=== PATIENT | male | born 1935 | race Caucasian/White ===

== ENCOUNTER 2019-04-11 16:57 | Inpatient (IN) | payer MEDICARE, OTHER ==
[~2019-04-11] VITALS: Ht 175.3 cm; Wt 78.2 kg
[~2019-04-11 16:57] MED LIST: LIDOcaine 2% (20 mg/ml) 5ml cardiac syringe ONE; MAGNESIUM SULFATE 4 MEQ/ML (5gm/10ml) injection ONE; albumin (human) 25% 100 ML IV solution IV ONE; aminocaproic acid 250 MG/1 ML inj. ONE; calcium chloride 100 MG/1 ML inj IV ONE; heparin 1,000 units/ml 10ml inj ONE; heparin 10,000 units/1 ML INJ ONE; methylPREDNISolone sod. succ. 500mg inj ONE; papaverine 30 mg/ml 2ml inj. ONE; phenylephrine 10mg/ml inj. ONE; potassium Cl 2 mEq/ml inj IV ONE; sevoflurane 250ml liquid IH ONE; sodium bicarbonate (8.4%) 1 mEq/ml syringe ONE
[2019-04-11] MEDS ORDERED: LOSA100T57 PO (17:07)
[2019-04-11] MEDS ORDERED: AMLO10TA PO (17:07)
--- NOTE | 2019-04-11 18:49 | NUR ---
pat troponin level came 2.59,notified eva hutchison as per eva thornton telephone betting clerk to page dr brown cardioloigist,notified and paged dr brown.
[2019-04-11 18:55] LABS: BASOPHILS # (AUTO) 0.1 X10'3 (0-0.2); BASOPHILS % (AUTO) 0.9 % (0-1); EOSINOPHILS # (AUTO) 0.2 X10'3 (0-0.9); EOSINOPHILS % (AUTO) 2.3 % (0-6); HEMATOCRIT 47.6 % (42.0-52.0); HEMOGLOBIN 16.2 g/dl (14.0-17.9); LYMPHOCYTES # (AUTO) 2.6 X10'3 (1.1-4.8); LYMPHOCYTES % (AUTO) 28.8 % (21-51); MEAN CORPUSCULAR HEMOGLOBIN 30.5 PG (27.0-31.0); MEAN CORPUSCULAR HGB CONC 33.9 g/dL (33.0-36.5); MEAN PLATELET VOLUME 9.8 FL (7.4-10.4); MONOCYTES # (AUTO) 0.5 X10'3 (0-0.9); MONOCYTES % (AUTO) 5.8 % (2-12); NEUTROPHILS # (AUTO) 5.7 X10'3 (1.8-7.7); NEUTROPHILS % (AUTO) 62.2 % (42-75); PLATELET COUNT 196 X10'3 (140-440); RED BLOOD COUNT 5.29 X10'6 (4.70-6.10); RED CELL DISTRIBUTION WIDTH 13.1 % (11.5-14.5); WHITE BLOOD COUNT 9.2 X10'3 (4.5-11.0)
[2019-04-11 19:07] LABS: ALANINE AMINOTRANSFERASE 32 U/L (12-78); ALBUMIN 3.9 G/DL (3.4-5.0); ALBUMIN/GLOBULIN RATIO 1.1 (1.1-1.5); ANION GAP 8 (8-16); ASPARTATE AMINO TRANSFERASE 24 U/L (10-37); BILIRUBIN,TOTAL 1.1 MG/DL (0.1-1.0); BLOOD UREA NITROGEN 10 MG/DL (7-18); BUN/CREATININE RATIO 12.3 (5.4-32.0); CALCIUM 9.5 MG/DL (8.5-10.1); CHLORIDE 106 MMOL/L (99-107); CREATININE 0.81 MG/DL (0.60-1.10); GLUCOSE 96 MG/DL (70-104); POTASSIUM 3.9 MMOL/L (3.5-5.1); SODIUM 141 MMOL/L (135-145); TOTAL CARBON DIOXIDE 27.5 MMOL/L (24-32); TOTAL PROTEIN 7.3 G/DL (6.4-8.2); eGFR > 90 ML/MIN
[2019-04-11 19:08] LABS: ALKALINE PHOSPHATASE 75 IU/L (46-116)
[2019-04-11] MEDS ORDERED: mag hydrox/Alum hydrox/simeth 30ml oral suspension PO PRN (19:55)
[2019-04-11] MEDS ORDERED: normal saline 1000ml 1,000 ML IV SCH (19:55)
[2019-04-11] MEDS ORDERED: magnesium hydroxide 30ml (MOM) UD suspension PO PRN (19:55)
[2019-04-11] MEDS ORDERED: ondansetron/PF 4mg/2ml inj IV PRN (19:55)
[2019-04-11] MEDS ORDERED: acetaminophen 325mg tablet PO PRN (19:55)
[2019-04-11 20:21] LABS: HEMOGLOBIN A1C 5.4 % (4.5-6.2)
--- NOTE | 2019-04-11 20:24 | NUR ---
SHAW MEL TO CALL BACK TO RECEIVE REPORT.
[2019-04-11] MEDS: metoprolol tartrate 12.5mg (1/2 tablet) PO SCH (20:34)
[2019-04-11] MEDS: enoxaparin 40mg/0.4ml syringe SUBCUT SCH (20:34)
--- NOTE | 2019-04-11 20:50 | NUR ---
Patient in room MED 313. I have received report from [facility] and had the opportunity to ask questions and assume patient care.
[2019-04-11] MEDS ORDERED: non-formulary drug (Amlodipine Besylate 1 TABLET) PO SCH (21:00)
[2019-04-11] MEDS ORDERED: zolpidem 5mg tablet PO ONE (21:00)
[2019-04-11] MEDS: amLODIPine 5mg tablet PO SCH (21:21)
[2019-04-11 22:00] VITALS: BP 164/78
[2019-04-12] VITALS (13 sets, daily range): BP systolic 95–156; BP diastolic 51–71
[2019-04-12 04:11] LABS: BASOPHILS % (AUTO) 0.5 % (0-1); EOSINOPHILS # (AUTO) 0.2 X10'3 (0-0.9); EOSINOPHILS % (AUTO) 2.7 % (0-6); HEMATOCRIT 42.7 % (42.0-52.0); HEMOGLOBIN 14.4 g/dl (14.0-17.9); LYMPHOCYTES # (AUTO) 2.4 X10'3 (1.1-4.8); LYMPHOCYTES % (AUTO) 29.7 % (21-51); MEAN CORPUSCULAR HEMOGLOBIN 30.5 PG (27.0-31.0); MEAN CORPUSCULAR HGB CONC 33.7 g/dL (33.0-36.5); MEAN CORPUSCULAR VOLUME 90.5 FL (78-98); MEAN PLATELET VOLUME 9.8 FL (7.4-10.4); MONOCYTES # (AUTO) 0.5 X10'3 (0-0.9); MONOCYTES % (AUTO) 6.7 % (2-12); NEUTROPHILS # (AUTO) 4.8 X10'3 (1.8-7.7); NEUTROPHILS % (AUTO) 60.4 % (42-75); PLATELET COUNT 182 X10'3 (140-440); RED BLOOD COUNT 4.72 X10'6 (4.70-6.10); RED CELL DISTRIBUTION WIDTH 13.3 % (11.5-14.5)
[2019-04-12 04:16] LABS: ALANINE AMINOTRANSFERASE 27 U/L (12-78); ALBUMIN 3.3 G/DL (3.4-5.0); ALBUMIN/GLOBULIN RATIO 1.1 (1.1-1.5); ALKALINE PHOSPHATASE 64 IU/L (46-116); ANION GAP 8 (8-16); ASPARTATE AMINO TRANSFERASE 21 U/L (10-37); BLOOD UREA NITROGEN 11 MG/DL (7-18); CALCIUM 9.2 MG/DL (8.5-10.1); CHLORIDE 107 MMOL/L (99-107); CHOL/HDL RATIO 3.2 (0.00-4.99); CHOLESTEROL 125 MG/DL (0-200); CREATININE 0.92 MG/DL (0.60-1.10); GLUCOSE 94 MG/DL (70-104); HDL CHOLESTEROL 39 MG/DL (35-60); LDL CHOLESTEROL 72 MG/DL (50-100); POTASSIUM 3.8 MMOL/L (3.5-5.1); SODIUM 142 MMOL/L (135-145); TOTAL CARBON DIOXIDE 27.2 MMOL/L (24-32); TOTAL PROTEIN 6.2 G/DL (6.4-8.2); TRIGLYCERIDES 171 MG/DL (20-135); eGFR 79 ML/MIN
--- NOTE | 2019-04-12 06:00 | NUR ---
Patient in room MED 313. I have received report from Chetan SQUIRES and had the opportunity to ask questions and assume patient care.
--- NOTE | 2019-04-12 07:00 | NUR ---
called laborer ammunition assembly and was instructed to only hold pt's lovenox and to give cozaar and lopressor.
[2019-04-12] MEDS: enoxaparin 40mg/0.4ml syringe SUBCUT SCH (07:03)
[2019-04-12] MEDS: metoprolol tartrate 12.5mg (1/2 tablet) PO SCH ×2 (07:28→21:05)
[2019-04-12] MEDS ORDERED: midazolam 2 mg/2 ml injection ONE (07:32)
[2019-04-12] MEDS ORDERED: iohexol 350MG/ML 100ml bottle IV ONE (07:33)
[2019-04-12] MEDS ORDERED: LIDOcaine 1% (10mg/ml)w/preservative injection 20ml MDV ONE (07:33)
[2019-04-12] MEDS ORDERED: iohexol 350 MG/ML 50ML vial IV ONE (07:33)
[2019-04-12] MEDS ORDERED: fentaNYL/PF 50MCG/1 ML 2ML syringe ONE (07:33)
[2019-04-12] MEDS ORDERED: heparin 1,000 UNITS/NS 500ml 500 ML ONE ×2 (07:33)
--- NOTE | 2019-04-12 07:45 | NUR ---
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
[2019-04-12] MEDS ORDERED: non-formulary drug (Losartan Potassium 1 TAB) PO SCH (08:00)
[2019-04-12] MEDS ORDERED: losartan 50mg tablet PO SCH (08:00)
[2019-04-12] MEDS ORDERED: atorvastatin 20mg tablet PO SCH (08:00)
[2019-04-12] MEDS: aspirin 325mg tablet PO SCH (08:30)
[2019-04-12] MEDS: normal saline 1000ml 1,000 ML IV SCH ×2 (08:30→18:30)
--- NOTE | 2019-04-12 08:45 | NUR ---
Patient in room MED 313; back from labor gang supervisor. I have received report from Janell SQUIRES and had the opportunity to ask questions and assume patient care.
[2019-04-12] MEDS ORDERED: heparin 10,000 units/1 ML INJ IV PRN (09:00)
[2019-04-12 09:24] LABS: BASOPHILS % (AUTO) 0.6 % (0-1); EOSINOPHILS # (AUTO) 0.1 X10'3 (0-0.9); EOSINOPHILS % (AUTO) 1.8 % (0-6); HEMATOCRIT 42.2 % (42.0-52.0); HEMOGLOBIN 14.1 g/dl (14.0-17.9); LYMPHOCYTES # (AUTO) 1.6 X10'3 (1.1-4.8); LYMPHOCYTES % (AUTO) 24.3 % (21-51); MEAN CORPUSCULAR HEMOGLOBIN 30.4 PG (27.0-31.0); MEAN CORPUSCULAR HGB CONC 33.5 g/dL (33.0-36.5); MEAN CORPUSCULAR VOLUME 90.8 FL (78-98); MEAN PLATELET VOLUME 9.4 FL (7.4-10.4); MONOCYTES # (AUTO) 0.4 X10'3 (0-0.9); NEUTROPHILS # (AUTO) 4.3 X10'3 (1.8-7.7); NEUTROPHILS % (AUTO) 67.3 % (42-75); PLATELET COUNT 180 X10'3 (140-440); RED BLOOD COUNT 4.64 X10'6 (4.70-6.10); RED CELL DISTRIBUTION WIDTH 13.1 % (11.5-14.5); WHITE BLOOD COUNT 6.5 X10'3 (4.5-11.0)
[2019-04-12 09:42] LABS: INR 1.1 INR; PARTIAL THROMBOPLASTIN TIME 32 SECONDS (22-32)
[2019-04-12] MEDS ORDERED: nitroGLYCERIN 0.4mg SUBLingual tab SL PRN (10:10)
[2019-04-12] MEDS ORDERED: proCHLORperazine 10 MG/2 ml inj IV PRN (10:10)
[2019-04-12] MEDS ORDERED: OXAZEpam 15mg capsule PO PRN (10:10)
[2019-04-12] MEDS ORDERED: HYDROcodone/acetaminophen 10/325mg tab PO PRN (10:10)
[2019-04-12] MEDS ORDERED: HYDROcodone/acetaminophen 5mg/325mg tablet PO PRN (10:10)
--- NOTE | 2019-04-12 10:11 | NUR ---
delay on starting heparin gtt looking for pump and vascular at bedside vein mapping being done.
[2019-04-12] MEDS: heparin 25,000 UNIT/250ml bag 250 ML IV SCH ×2 (11:01→17:53)
[2019-04-12] MEDS ORDERED: dextrose 50%-water 50ml dispensing syringe IV PRN (13:30)
[2019-04-12] MEDS ORDERED: MESSAGE TO NURSING PO ONE ×3 (13:30→20:00)
[2019-04-12] MEDS ORDERED: insulin glargine (Lantus) pen - multi-dose SQ PRN (13:30)
[2019-04-12 14:14] LABS: HEMOGLOBIN 14.8 g/dl (14.0-17.9); MEAN CORPUSCULAR HEMOGLOBIN 30.3 PG (27.0-31.0); MEAN CORPUSCULAR HGB CONC 33.6 g/dL (33.0-36.5); MEAN CORPUSCULAR VOLUME 90.3 FL (78-98); MEAN PLATELET VOLUME 9.7 FL (7.4-10.4); PLATELET COUNT 191 X10'3 (140-440); RED BLOOD COUNT 4.88 X10'6 (4.70-6.10); RED CELL DISTRIBUTION WIDTH 13.3 % (11.5-14.5); WHITE BLOOD COUNT 9.8 X10'3 (4.5-11.0)
[2019-04-12 14:24] LABS: ANION GAP 7 (8-16); BLOOD UREA NITROGEN 10 MG/DL (7-18); CHLORIDE 107 MMOL/L (99-107); CREATININE 0.83 MG/DL (0.60-1.10); GLUCOSE 91 MG/DL (70-104); POTASSIUM 3.7 MMOL/L (3.5-5.1); SODIUM 140 MMOL/L (135-145); TOTAL CARBON DIOXIDE 26.4 MMOL/L (24-32)
[2019-04-12 14:25] LABS: ALBUMIN 3.4 G/DL (3.4-5.0); CALCIUM 8.8 MG/DL (8.5-10.1); eGFR 88 ML/MIN
[2019-04-12 15:45] LABS: ABG BASE EXCESS -1.8 mmol/L (-2.0-3.0); ABG HCO3 21.8 mmol/L (22.0-26.0); ABG OXYGEN SATURATION 96.7 % (95-98); ABG PCO2 (T) 34.2 mmHg (35.0-48.0); ABG PH (T) 7.422 (7.350-7.450); ABG PO2 (T) 83.2 mmHg (83-108); ALLEN'S TEST Positive; FCOHb 0.5 % (0.5-1.5); FMetHb 0.2 % (0.3-1.12)
[2019-04-12 17:21] LABS: INR 1.1 INR
--- NOTE | 2019-04-12 18:00 | NUR ---
Patient in room MED 313. I have received report from Crys SQUIRES and had the opportunity to ask questions and assume patient care.
[2019-04-12] MEDS ORDERED: metoprolol tartrate 12.5mg (1/2 tablet) PO SCH (20:00)
[2019-04-12] MEDS: amLODIPine 5mg tablet PO SCH (21:04)
[2019-04-12] MEDS: mupirocin 2% nasal ointment 1gm UD NS SCH (21:05)
[2019-04-13] VITALS (18 sets, daily range): BP systolic 108–153; BP diastolic 50–73
[2019-04-13 01:10] LABS: INR 1.1 INR
[2019-04-13] MEDS ORDERED: MESSAGE TO NURSING PO ONE ×2 (04:00→07:00)
--- NOTE | 2019-04-13 05:42 | NUR ---
Page to Vascular. [id number]. Is this pt. still needing vein mapping of his arms for his CABG @1000 this morning. Per day shift it was suppose to be done last night but nobody ever showed back up after they completed the legs. Thank you.
[2019-04-13 05:49] LABS: BASOPHILS # (AUTO) 0.1 X10'3 (0-0.2); BASOPHILS % (AUTO) 0.7 % (0-1); EOSINOPHILS # (AUTO) 0.2 X10'3 (0-0.9); EOSINOPHILS % (AUTO) 2.5 % (0-6); HEMATOCRIT 39.9 % (42.0-52.0); HEMOGLOBIN 13.3 g/dl (14.0-17.9); LYMPHOCYTES # (AUTO) 2.8 X10'3 (1.1-4.8); LYMPHOCYTES % (AUTO) 33.6 % (21-51); MEAN CORPUSCULAR HEMOGLOBIN 30.5 PG (27.0-31.0); MEAN CORPUSCULAR HGB CONC 33.5 g/dL (33.0-36.5); MEAN CORPUSCULAR VOLUME 91.3 FL (78-98); MEAN PLATELET VOLUME 9.9 FL (7.4-10.4); MONOCYTES # (AUTO) 0.7 X10'3 (0-0.9); NEUTROPHILS # (AUTO) 4.6 X10'3 (1.8-7.7); NEUTROPHILS % (AUTO) 55.2 % (42-75); PLATELET COUNT 175 X10'3 (140-440); RED BLOOD COUNT 4.37 X10'6 (4.70-6.10); RED CELL DISTRIBUTION WIDTH 13.2 % (11.5-14.5); WHITE BLOOD COUNT 8.4 X10'3 (4.5-11.0)
--- NOTE | 2019-04-13 06:19 | NUR ---
Problems reprioritized. Patient report given, questions answered & plan of care reviewed with Crys SQUIRES.
[2019-04-13 06:27] LABS: ALANINE AMINOTRANSFERASE 23 U/L (12-78); ALBUMIN/GLOBULIN RATIO 1.1 (1.1-1.5); ALKALINE PHOSPHATASE 57 IU/L (46-116); ANION GAP 8 (8-16); ASPARTATE AMINO TRANSFERASE 15 U/L (10-37); BILIRUBIN,TOTAL 1.1 MG/DL (0.1-1.0); BLOOD UREA NITROGEN 13 MG/DL (7-18); BUN/CREATININE RATIO 12.6 (5.4-32.0); CALCIUM 8.3 MG/DL (8.5-10.1); CHLORIDE 110 MMOL/L (99-107); CREATININE 1.03 MG/DL (0.60-1.10); GLUCOSE 98 MG/DL (70-104); POTASSIUM 4.1 MMOL/L (3.5-5.1); SODIUM 143 MMOL/L (135-145); TOTAL CARBON DIOXIDE 24.7 MMOL/L (24-32); TOTAL PROTEIN 5.8 G/DL (6.4-8.2); eGFR 69 ML/MIN
[2019-04-13] MEDS ORDERED: ROPIVAcaine 0.5% (5mg/ml) 30ml vial ONE (07:19)
[2019-04-13] MEDS ORDERED: ringers solution, lacted 1,000 ML IV ONE (07:26)
[2019-04-13] MEDS: aspirin 325mg tablet PO SCH (07:39)
[2019-04-13] MEDS: mupirocin 2% nasal ointment 1gm UD NS SCH ×2 (07:39→21:25)
[2019-04-13] MEDS: metoprolol tartrate 12.5mg (1/2 tablet) PO SCH (07:41)
[2019-04-13] MEDS ORDERED: ceFAZolin 2gm in dextrose, iso 100 ML IV ONE (08:00)
[2019-04-13] MEDS ORDERED: vancomycin/NS 1 GM ADD-VANTAGE 250 ML IV ONE (08:00)
[2019-04-13] MEDS ORDERED: insulin regular, human 100 UNIT in normal saline 100ml IV soln 100 ML IV SCH ×2 (08:00)
[2019-04-13] MEDS ORDERED: gabapentin 400mg capsule PO ONE (08:00)
[2019-04-13] MEDS ORDERED: midazolam 2 mg/2 ml injection ONE ×3 (08:08→08:09)
[2019-04-13] MEDS ORDERED: SUFENTANIL CITRATE 50 MCG/ML 2ml ampule IV ONE (08:08)
[2019-04-13] MEDS ORDERED: LIDOcaine 2% (20mg/ml) 5ml vial ONE (08:11)
[2019-04-13] MEDS ORDERED: propofol inj 20 ML IV ONE (08:11)
[2019-04-13] MEDS ORDERED: pancuronium br 1mg/ml inj IV ONE (08:11)
[2019-04-13] MEDS: NUT.TX.IMPAIRED DIGEST FXN (Ensure Clear) 237 ML PO ONE ×2 (08:44→09:04)
--- NOTE | 2019-04-13 09:00 | NUR ---
pt to CVOR
--- NOTE | 2019-04-13 09:05 | NUR ---
ENSURE CLEAR NOT AVAILABLE. DIETARY WAS UNAWARE THAT THIS ORDER WAS TO BE GIVEN PRE-OP CABG. DIETARY DID DELIVER STAT, HOWEVER, WHEN TALKING WITH WENDY CVOR RN, NOT TO GIVE AT THIS TIME IT IS TOO CLOSE TO CUT TIME.
[2019-04-13 09:55] LABS: ABG BASE EXCESS -3.1 mmol/L (-2.0-3.0); ABG HCO3 20.5 mmol/L (22.0-26.0); ABG OXYGEN SATURATION 99.5 % (95-98); ABG PCO2 32.6 mmHg (35.0-45.0); ABG PH 7.417 (7.350-7.450); ABG PO2 262.2 mmHg (60.0-100.0); CL (ABG) 107 mmol/L (99-107); FCOHb 0.7 % (0.5-1.5); FMetHb 0.4 % (0.3-1.12); FO2Hb 98.4 % (94-100); GLUCOSE (ABG) 92 mg/dl (70-105); IONIZED CA (ABG) 1.15 mmol/L (1.03-1.32); K (ABG) 3.8 mmol/L (3.3-5.1); NA (ABG) 138 mmol/L (135-145)
[2019-04-13] MEDS ORDERED: papaverine 30 mg/ml 2ml inj. IA ONE (10:00)
[2019-04-13] MEDS ORDERED: heparin 10,000 units/1 ML INJ IR ONE (10:00)
[2019-04-13 10:50] LABS: ABG BASE EXCESS -1.8 mmol/L (-2.0-3.0); ABG HCO3 21.9 mmol/L (22.0-26.0); ABG OXYGEN SATURATION 99.3 % (95-98); ABG PH 7.439 (7.350-7.450); ABG PO2 230.3 mmHg (60.0-100.0); CL (ABG) 104 mmol/L (99-107); FCOHb 0.5 % (0.5-1.5); FMetHb 0.3 % (0.3-1.12); FO2Hb 98.5 % (94-100); GLUCOSE (ABG) 108 mg/dl (70-105); IONIZED CA (ABG) 1.04 mmol/L (1.03-1.32); K (ABG) 4.9 mmol/L (3.3-5.1); NA (ABG) 134 mmol/L (135-145); TOTAL HEMOGLOBIN 10.1 G/dl (14.0-18.0)
[2019-04-13 11:11] LABS: ABG BASE EXCESS VENOUS 2.7 mmol/L; ABG HCO3 VENOUS 26.5 mmol/L; ABG PCO2 VENOUS 37.9 mmHg; ABG PO2 VENOUS 41.3 mmHg; CL (ABG) 104 mmol/L (99-107); FCOHb VENOUS 0.6 %; FHHb VENOUS 18.5 %; FMetHb VENOUS 0.6 %; FO2Hb VENOUS 80.3 %; GLUCOSE (ABG) 110 mg/dl (70-105); IONIZED CA (ABG) 1.02 mmol/L (1.03-1.32); K (ABG) 4.8 mmol/L (3.3-5.1); NA (ABG) 137 mmol/L (135-145); TOTAL HEMOGLOBIN 10.2 G/dl (14.0-18.0)
[2019-04-13 11:41] LABS: ABG BASE EXCESS 0.1 mmol/L (-2.0-3.0); ABG HCO3 23.8 mmol/L (22.0-26.0); ABG OXYGEN SATURATION 99.2 % (95-98); ABG PCO2 34.6 mmHg (35.0-45.0); ABG PH 7.455 (7.350-7.450); ABG PO2 315.2 mmHg (60.0-100.0); CL (ABG) 103 mmol/L (99-107); FCOHb 0.2 % (0.5-1.5); FMetHb 0.5 % (0.3-1.12); FO2Hb 98.5 % (94-100); GLUCOSE (ABG) 137 mg/dl (70-105); IONIZED CA (ABG) 1.45 mmol/L (1.03-1.32); K (ABG) 4.7 mmol/L (3.3-5.1); NA (ABG) 131 mmol/L (135-145); TOTAL HEMOGLOBIN 9.6 G/dl (14.0-18.0)
[2019-04-13] MEDS ORDERED: acetaminophen 1,000mg/100ml IV 100 ML IV ONE (11:48)
[2019-04-13 11:56] LABS: ABG HCO3 VENOUS 24.5 mmol/L; ABG PCO2 VENOUS 39.2 mmHg; ABG PO2 VENOUS 50.9 mmHg; CL (ABG) 104 mmol/L (99-107); FCOHb VENOUS 0.4 %; FHHb VENOUS 13.3 %; FMetHb VENOUS 0.5 %; FO2Hb VENOUS 85.8 %; GLUCOSE (ABG) 143 mg/dl (70-105); IONIZED CA (ABG) 1.24 mmol/L (1.03-1.32); K (ABG) 4.5 mmol/L (3.3-5.1); NA (ABG) 135 mmol/L (135-145); TOTAL HEMOGLOBIN 10.1 G/dl (14.0-18.0)
[2019-04-13] MEDS ORDERED: albumin (Human) 5% 250ml 250 ML IV ONE ×2 (12:32→12:35)
[2019-04-13] MEDS ORDERED: sodium chloride 0.45% 1,000 ML IV SCH (12:37)
[2019-04-13] MEDS ORDERED: DOPamine 400mg/D5W 250ml 250 ML IV PRN (12:37)
[2019-04-13] MEDS ORDERED: niCARDipine-NS 40mg/200ml IVPB 200 ML IV PRN (12:37)
[2019-04-13] MEDS ORDERED: nitroGLYCERIN-Tridil 50MG/D5W 250 ML IV PRN (12:37)
[2019-04-13] MEDS ORDERED: metoclopramide 5 mg/ml inj IV PRN (12:40)
[2019-04-13] MEDS ORDERED: Neutra Phos packet PO PRN (12:40)
[2019-04-13] MEDS ORDERED: sodium phosphate inj. 15 MMOL in dextrose 5%-water 150 ML IV PRN (12:40)
[2019-04-13] MEDS ORDERED: magnesium 2GM in 50ml NS 50 ML IV PRN (12:40)
[2019-04-13] MEDS ORDERED: magnesium 4gm in 100ml NS 100 ML IV PRN (12:40)
[2019-04-13] MEDS ORDERED: sodium phosphate inj. 30 MMOL in dextrose 5%-water 250 ML IV PRN (12:40)
[2019-04-13] MEDS ORDERED: pantoprazole 40 MG vial IV ONE (12:40)
[2019-04-13] MEDS ORDERED: insulin regular, human inj. 100 UNITS in normal saline 100ml IV soln 100 ML IV SCH ×2 (12:40)
[2019-04-13] MEDS ORDERED: dextrose 50%-water 50ml dispensing syringe IV PRN (12:40)
[2019-04-13] MEDS ORDERED: potassium Cl 20 mEq SR tablet PO PRN (12:40)
[2019-04-13] MEDS ORDERED: normal saline 250ml IV soln 250 ML IV PRN (12:40)
[2019-04-13] MEDS ORDERED: acetaminophen 325mg tablet PO PRN (12:40)
[2019-04-13] MEDS ORDERED: morphine 4 MG/ML inj SYRINge IV PRN (12:40)
[2019-04-13] MEDS ORDERED: albumin (Human) 5% 250ml 250 ML IV PRN (12:40)
[2019-04-13] MEDS ORDERED: ondansetron/PF 4mg/2ml inj IV PRN (12:40)
--- NOTE | 2019-04-13 12:45 | NUR ---
Received to room 2043B, accompanied by Mitzi Faustin, and Valeriy and surgical crew. Placed on ventilator, to air sampling and monitoring, arterial line and PA line pressure monitored. Chest tubes to suction at 20 cm. Rangel cath to gravity drainage. Dressings are dry and intact. See assessment record. All vasoactive drugs are infusing via central line.
[2019-04-13] MEDS: insulin Lispro (HumaLOG) vial - multi-dose SQ SCH ×2 (13:00→18:00)
[2019-04-13 13:05] LABS: ABG BASE EXCESS -0.6 mmol/L (-2.0-3.0); ABG OXYGEN SATURATION 98.5 % (95-98); ABG PCO2 (T) 48.1 mmHg (35.0-48.0); ABG PH (T) 7.345 (7.350-7.450); FCOHb 0.1 % (0.5-1.5); FMetHb 0.4 % (0.3-1.12); MINUTE VOLUME 5 L/min; PATIENT TEMPERATURE 35.6; PEEP 5 cm H2O; RESPIRATORY RATE 8 b/min; RESPIRATORY RATE (OBSERVED) 8 b/min; TIDAL VOLUME 600 mL; TOTAL HEMOGLOBIN 13.3 G/dl (14.0-18.0)
[2019-04-13 13:23] LABS: HEMOGLOBIN 12.3 g/dl (14.0-17.9)
[2019-04-13 13:25] LABS: HEMATOCRIT 36.3 % (42.0-52.0); MEAN CORPUSCULAR HEMOGLOBIN 30.5 PG (27.0-31.0); MEAN CORPUSCULAR HGB CONC 33.8 g/dL (33.0-36.5); MEAN CORPUSCULAR VOLUME 90.4 FL (78-98); MEAN PLATELET VOLUME 9.7 FL (7.4-10.4); PLATELET COUNT 114 X10'3 (140-440); RED BLOOD COUNT 4.02 X10'6 (4.70-6.10); RED CELL DISTRIBUTION WIDTH 13.1 % (11.5-14.5); WHITE BLOOD COUNT 16.3 X10'3 (4.5-11.0)
[2019-04-13 13:27] LABS: ALANINE AMINOTRANSFERASE 20 U/L (12-78); ALBUMIN 3.3 G/DL (3.4-5.0); ALBUMIN/GLOBULIN RATIO 1.6 (1.1-1.5); ALKALINE PHOSPHATASE 44 IU/L (46-116); ANION GAP 8 (8-16); ASPARTATE AMINO TRANSFERASE 18 U/L (10-37); BILIRUBIN,TOTAL 1.5 MG/DL (0.1-1.0); BLOOD UREA NITROGEN 11 MG/DL (7-18); BUN/CREATININE RATIO 12.4 (5.4-32.0); CALCIUM 8.4 MG/DL (8.5-10.1); CHLORIDE 108 MMOL/L (99-107); CREATININE 0.89 MG/DL (0.60-1.10); GLUCOSE 150 MG/DL (70-104); INR 1.2 INR; PARTIAL THROMBOPLASTIN TIME 34 SECONDS (22-32); PHOSPHORUS 2.5 MG/DL (2.3-4.5); SODIUM 144 MMOL/L (135-145); TOTAL CARBON DIOXIDE 27.9 MMOL/L (24-32); TOTAL PROTEIN 5.4 G/DL (6.4-8.2); eGFR 82 ML/MIN
[2019-04-13] MEDS: potassium Cl 20mEq/100mL bag 100 ML IV PRN ×2 (14:09→16:20)
--- NOTE | 2019-04-13 15:00 | NUR ---
slight independant movement noted of hands, swallow present, not following commands yet drowsy.
[2019-04-13] MEDS: gabapentin 300mg capsule PO SCH ×2 (15:14→20:27)
[2019-04-13 16:26] LABS: TOTAL CELLS COUNTED 100
[2019-04-13 16:28] LABS: PLATELET ESTIMATE DECREASED
--- NOTE | 2019-04-13 17:00 | NUR ---
opening eyes to voice, following all commands, denies pain by shaking head no, turned and repositioned, suctioned x1 for no returns from ETT.
[2019-04-13] MEDS: ceFAZolin 1GM/D5W- ADD-VANTAGE 50 ML IV SCH ×2 (17:24→23:52)
--- NOTE | 2019-04-13 18:17 | NUR ---
Problems reprioritized. Patient report given,Estrellita Jenkins RN questions answered & plan of care reviewed with .
[2019-04-13 18:57] LABS: BASOPHILS % (AUTO) 0.1 % (0-1); EOSINOPHILS % (AUTO) 0 % (0-6); HEMATOCRIT 36.2 % (42.0-52.0); LYMPHOCYTES # (AUTO) 0.6 X10'3 (1.1-4.8); LYMPHOCYTES % (AUTO) 3.9 % (21-51); MEAN CORPUSCULAR HEMOGLOBIN 30.2 PG (27.0-31.0); MEAN CORPUSCULAR HGB CONC 33.1 g/dL (33.0-36.5); MEAN CORPUSCULAR VOLUME 91.4 FL (78-98); MEAN PLATELET VOLUME 9.8 FL (7.4-10.4); MONOCYTES # (AUTO) 0.4 X10'3 (0-0.9); MONOCYTES % (AUTO) 2.6 % (2-12); NEUTROPHILS # (AUTO) 14.1 X10'3 (1.8-7.7); NEUTROPHILS % (AUTO) 93.4 % (42-75); PLATELET COUNT 107 X10'3 (140-440); RED BLOOD COUNT 3.96 X10'6 (4.70-6.10); WHITE BLOOD COUNT 15.1 X10'3 (4.5-11.0)
[2019-04-13] MEDS: morphine 4 MG/ML inj SYRINge IV PRN ×2 (19:03→23:52)
[2019-04-13 19:05] LABS: ALBUMIN 3.3 G/DL (3.4-5.0); ANION GAP 10 (8-16); BLOOD UREA NITROGEN 12 MG/DL (7-18); BUN/CREATININE RATIO 10.9 (5.4-32.0); CHLORIDE 111 MMOL/L (99-107); GLUCOSE 146 MG/DL (70-104); MAGNESIUM 2.3 MG/DL (1.5-2.4); PHOSPHORUS 2.7 MG/DL (2.3-4.5); POTASSIUM 3.9 MMOL/L (3.5-5.1); SODIUM 145 MMOL/L (135-145); TOTAL CARBON DIOXIDE 24.4 MMOL/L (24-32); eGFR 64 ML/MIN
[2019-04-13] MEDS: vancomycin/NS 1 GM ADD-VANTAGE 250 ML IV SCH (20:27)
[2019-04-13] MEDS: docusate sod 100mg capsule PO SCH (20:27)
[2019-04-13 22:31] LABS: ABG BASE EXCESS -2.6 mmol/L (-2.0-3.0); ABG HCO3 21.3 mmol/L (22.0-26.0); ABG OXYGEN SATURATION 96.6 % (95-98); ABG PCO2 (T) 35.1 mmHg (35.0-48.0); ABG PH (T) 7.403 (7.350-7.450); ABG PO2 (T) 93.7 mmHg (83-108); FCOHb 0.3 % (0.5-1.5); FMetHb 0.2 % (0.3-1.12); FO2Hb 96.1 % (94-100); MINUTE VOLUME 9 L/min; PATIENT TEMPERATURE 37.6; PEEP 5 cm H2O; RESPIRATORY RATE (OBSERVED) 15 b/min; TOTAL HEMOGLOBIN 12.7 G/dl (14.0-18.0)
[2019-04-14] VITALS (24 sets, daily range): BP systolic 100–142; BP diastolic 41–67
[2019-04-14] MEDS: HYDROcodone/acetaminophen 10/325mg tab PO PRN ×5 (02:42→20:14)
[2019-04-14 04:32] LABS: BASOPHILS % (AUTO) 0.1 % (0-1); EOSINOPHILS % (AUTO) 0 % (0-6); HEMATOCRIT 33.2 % (42.0-52.0); HEMOGLOBIN 11.2 g/dl (14.0-17.9); LYMPHOCYTES # (AUTO) 1.3 X10'3 (1.1-4.8); LYMPHOCYTES % (AUTO) 8.2 % (21-51); MEAN CORPUSCULAR HEMOGLOBIN 30.7 PG (27.0-31.0); MEAN CORPUSCULAR HGB CONC 33.8 g/dL (33.0-36.5); MEAN CORPUSCULAR VOLUME 90.8 FL (78-98); MONOCYTES # (AUTO) 0.9 X10'3 (0-0.9); MONOCYTES % (AUTO) 5.9 % (2-12); NEUTROPHILS # (AUTO) 13.8 X10'3 (1.8-7.7); NEUTROPHILS % (AUTO) 85.8 % (42-75); PLATELET COUNT 93 X10'3 (140-440); RED BLOOD COUNT 3.65 X10'6 (4.70-6.10); RED CELL DISTRIBUTION WIDTH 13.4 % (11.5-14.5); WHITE BLOOD COUNT 16.1 X10'3 (4.5-11.0)
[2019-04-14 04:34] LABS: INR 1.1 INR; PARTIAL THROMBOPLASTIN TIME 28 SECONDS (22-32)
[2019-04-14 04:39] LABS: ALANINE AMINOTRANSFERASE 25 U/L (12-78); ALBUMIN/GLOBULIN RATIO 1.4 (1.1-1.5); ALKALINE PHOSPHATASE 40 IU/L (46-116); ANION GAP 10 (8-16); ASPARTATE AMINO TRANSFERASE 30 U/L (10-37); BILIRUBIN,TOTAL 0.9 MG/DL (0.1-1.0); BLOOD UREA NITROGEN 13 MG/DL (7-18); CALCIUM 7.9 MG/DL (8.5-10.1); CHLORIDE 111 MMOL/L (99-107); CREATININE 1.08 MG/DL (0.60-1.10); GLUCOSE 138 MG/DL (70-104); PHOSPHORUS 4.3 MG/DL (2.3-4.5); POTASSIUM 3.9 MMOL/L (3.5-5.1); SODIUM 145 MMOL/L (135-145); TOTAL CARBON DIOXIDE 24.1 MMOL/L (24-32); TOTAL PROTEIN 5.2 G/DL (6.4-8.2); eGFR 65 ML/MIN
[2019-04-14] MEDS: potassium Cl 20mEq/100mL bag 100 ML IV PRN ×2 (05:01→13:25)
[2019-04-14] MEDS ORDERED: famotidine 20mg tablet PO ONE (06:00)
[2019-04-14] MEDS ORDERED: LORazepam 2 mg/ml vial IV ONE (06:00)
--- NOTE | 2019-04-14 06:17 | NUR ---
still sleeping at this time , vital stable , off pressors , still on insulin drip , hemodynamically stable ,
--- NOTE | 2019-04-14 06:28 | NUR ---
Problems reprioritized. Patient report given, questions answered & plan of care reviewed with JOHNATHAN SQUIRES.
[2019-04-14] MEDS ORDERED: aspirin 325mg tablet, delayed-release (Ecotrin) PO SCH ×2 (08:00→11:00)
[2019-04-14] MEDS: docusate sod 100mg capsule PO SCH ×2 (08:37→20:15)
[2019-04-14] MEDS: mupirocin 2% nasal ointment 1gm UD NS SCH ×2 (08:37→20:14)
[2019-04-14] MEDS: atorvastatin 10mg tablet PO SCH (08:37)
[2019-04-14] MEDS: gabapentin 300mg capsule PO SCH ×3 (08:37→20:14)
[2019-04-14] MEDS: ceFAZolin 1GM/D5W- ADD-VANTAGE 50 ML IV SCH ×2 (08:38→15:57)
[2019-04-14] MEDS: insulin Lispro (HumaLOG) vial - multi-dose SQ SCH (08:39)
[2019-04-14] MEDS: vancomycin/NS 1 GM ADD-VANTAGE 250 ML IV SCH ×2 (09:54→20:14)
[2019-04-14] MEDS: metoprolol tartrate 12.5mg (1/2 tablet) PO SCH ×2 (10:42→20:15)
--- NOTE | 2019-04-14 12:12 | NUR ---
CABG consult: Will need ed once stable prior to d/c. Addendum: 04/14/19 at [address] Amended: Links added.
[2019-04-14] MEDS ORDERED: magnesium 4gm in 100ml NS 100 ML IV PRN (17:50)
[2019-04-14] MEDS: magnesium 2GM in 50ml NS 50 ML IV PRN (17:57)
--- NOTE | 2019-04-14 18:30 | NUR ---
Patient in room ICU 2042. I have received report from Jonatan SQUIRES and had the opportunity to ask questions and assume patient care.
--- NOTE | 2019-04-14 19:30 | NUR ---
Patient back to bed. Patient tolerated well. Bed linens changed and patient bathed. Will continue to monitor.
[2019-04-14] MEDS: lactobacillus rhamnosus 10,000 MMU CELLS/CAPSULE PO SCH (20:15)
--- NOTE | 2019-04-14 22:00 | NUR ---
Patient resting at this time. Will continue to monitor.
[2019-04-15] VITALS (22 sets, daily range): BP systolic 116–166; BP diastolic 49–81
[2019-04-15] MEDS: ceFAZolin 1GM/D5W- ADD-VANTAGE 50 ML IV SCH (00:24)
[2019-04-15 03:19] LABS: BASOPHILS # (AUTO) 0.1 X10'3 (0-0.2); BASOPHILS % (AUTO) 0.3 % (0-1); EOSINOPHILS % (AUTO) 0.1 % (0-6); HEMATOCRIT 31.5 % (42.0-52.0); HEMOGLOBIN 10.8 g/dl (14.0-17.9); LYMPHOCYTES # (AUTO) 1.7 X10'3 (1.1-4.8); LYMPHOCYTES % (AUTO) 9.7 % (21-51); MEAN CORPUSCULAR HGB CONC 34.1 g/dL (33.0-36.5); MEAN CORPUSCULAR VOLUME 90.9 FL (78-98); MEAN PLATELET VOLUME 10.5 FL (7.4-10.4); MONOCYTES # (AUTO) 1.1 X10'3 (0-0.9); MONOCYTES % (AUTO) 6.3 % (2-12); NEUTROPHILS # (AUTO) 14.3 X10'3 (1.8-7.7); NEUTROPHILS % (AUTO) 83.6 % (42-75); PLATELET COUNT 93 X10'3 (140-440); RED BLOOD COUNT 3.47 X10'6 (4.70-6.10); RED CELL DISTRIBUTION WIDTH 13.4 % (11.5-14.5); WHITE BLOOD COUNT 17.1 X10'3 (4.5-11.0)
[2019-04-15 03:34] LABS: ALBUMIN 2.8 G/DL (3.4-5.0); ANION GAP 6 (8-16); BLOOD UREA NITROGEN 18 MG/DL (7-18); BUN/CREATININE RATIO 17.8 (5.4-32.0); CALCIUM 7.9 MG/DL (8.5-10.1); CHLORIDE 105 MMOL/L (99-107); CREATININE 1.01 MG/DL (0.60-1.10); GLUCOSE 134 MG/DL (70-104); MAGNESIUM 2.3 MG/DL (1.5-2.4); PHOSPHORUS 3.2 MG/DL (2.3-4.5); POTASSIUM 4.6 MMOL/L (3.5-5.1); SODIUM 138 MMOL/L (135-145); eGFR 71 ML/MIN
[2019-04-15] MEDS: magnesium 2GM in 50ml NS 50 ML IV PRN (04:01)
--- NOTE | 2019-04-15 06:25 | NUR ---
Problems reprioritized. Patient report given, questions answered & plan of care reviewed with Vidya SQUIRES.
[2019-04-15] MEDS: docusate sod 100mg capsule PO SCH ×2 (07:29→19:57)
[2019-04-15] MEDS: lactobacillus rhamnosus 10,000 MMU CELLS/CAPSULE PO SCH ×2 (07:30→19:57)
[2019-04-15] MEDS ORDERED: potassium Cl 20 mEq SR tablet PO PRN ×2 (07:30)
[2019-04-15] MEDS ORDERED: magnesium Cl slow-release 64mg tablet PO PRN (07:30)
[2019-04-15] MEDS: atorvastatin 10mg tablet PO SCH (07:30)
[2019-04-15] MEDS ORDERED: magnesium 4gm in 100ml NS 100 ML IV PRN (07:30)
[2019-04-15] MEDS ORDERED: potassium Cl 40MEQ/NS 500ml 500 ML IV PRN ×2 (07:30)
[2019-04-15] MEDS ORDERED: magnesium 2GM in 50ml NS 50 ML IV PRN (07:30)
[2019-04-15] MEDS: pantoprazole 40mg Tablet.DR PO SCH (07:30)
[2019-04-15] MEDS: gabapentin 300mg capsule PO SCH (07:31)
[2019-04-15] MEDS: metoprolol tartrate 12.5mg (1/2 tablet) PO SCH ×2 (07:31→19:56)
[2019-04-15] MEDS: magnesium Cl slow-release 64mg tablet PO SCH ×2 (07:43→19:57)
[2019-04-15] MEDS: HYDROcodone/acetaminophen 10/325mg tab PO PRN ×2 (07:44→18:45)
[2019-04-15] MEDS: mupirocin 2% nasal ointment 1gm UD NS SCH (08:00)
[2019-04-15] MEDS: K and/or MAG REPLACEMENT MC SCH (08:00)
[2019-04-15] MEDS: aspirin 81mg tablet.DR PO SCH (08:00)
[2019-04-15] MEDS ORDERED: aspirin 325mg tablet, delayed-release (Ecotrin) PO SCH (08:00)
[2019-04-15] MEDS: potassium Cl 20 mEq SR tablet PO SCH ×2 (08:00→19:57)
--- NOTE | 2019-04-15 19:00 | NUR ---
Patient in room ICU 2042. I have received report from Vidya SQUIRES and had the opportunity to ask questions and assume patient care.
--- NOTE | 2019-04-15 20:00 | NUR ---
Patient ambulated around the ICU and CICU unit without incident. Patient back to bed. Will continue to monitor.
--- NOTE | 2019-04-15 23:30 | NUR ---
Report taken from previous RN - Christine - no acute changes from report. Patient was easily arousable without complaints of pain or distress. GCS . 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 PIV to left FA flushed without difficulty or pain. scant BR. VSS, urinal at bedside with 500 ml clear yellow urine. Patient is on RA - lungs are clear b/l. Call light within patient reach.
[2019-04-16] VITALS (18 sets, daily range): BP systolic 119–164; BP diastolic 62–84
[2019-04-16 05:11] LABS: ACT @ 1.70 U 247 SEC (193-297); ACT @ 2.84 U 336 SEC (260-420); BASELINE ACT 134 SEC (101-148); PATIENT WEIGHT 78.0k KG
[2019-04-16 05:11] LABS: ACTIVATED CLOTTING TIME 136 SEC (101-148)
[2019-04-16] MEDS ORDERED: furosemide 40mg/4ml inj IV ONE (07:20)
[2019-04-16 07:26] LABS: ALBUMIN 2.8 G/DL (3.4-5.0); ANION GAP 6 (8-16); BLOOD UREA NITROGEN 16 MG/DL (7-18); BUN/CREATININE RATIO 19.8 (5.4-32.0); CALCIUM 8.7 MG/DL (8.5-10.1); CHLORIDE 107 MMOL/L (99-107); CREATININE 0.81 MG/DL (0.60-1.10); GLUCOSE 94 MG/DL (70-104); MAGNESIUM 1.8 MG/DL (1.5-2.4); POTASSIUM 3.8 MMOL/L (3.5-5.1); SODIUM 142 MMOL/L (135-145); TOTAL CARBON DIOXIDE 28.9 MMOL/L (24-32); eGFR > 90 ML/MIN
[2019-04-16] MEDS: magnesium Cl slow-release 64mg tablet PO SCH ×2 (07:29→19:14)
[2019-04-16] MEDS: lactobacillus rhamnosus 10,000 MMU CELLS/CAPSULE PO SCH ×2 (07:29→19:13)
[2019-04-16] MEDS: potassium Cl 20 mEq SR tablet PO SCH ×2 (07:29→19:14)
[2019-04-16] MEDS: pantoprazole 40mg Tablet.DR PO SCH (07:29)
[2019-04-16] MEDS: metoprolol tartrate 12.5mg (1/2 tablet) PO SCH ×2 (07:30→19:14)
[2019-04-16] MEDS: aspirin 81mg tablet.DR PO SCH (07:30)
[2019-04-16] MEDS: HYDROcodone/acetaminophen 10/325mg tab PO PRN (07:32)
[2019-04-16] MEDS: atorvastatin 10mg tablet PO SCH (07:35)
[2019-04-16 07:40] LABS: BASOPHILS % (AUTO) 0.2 % (0-1); EOSINOPHILS % (AUTO) 0.4 % (0-6); HEMATOCRIT 35.8 % (42.0-52.0); HEMOGLOBIN 11.9 g/dl (14.0-17.9); LYMPHOCYTES # (AUTO) 1.8 X10'3 (1.1-4.8); MEAN CORPUSCULAR HEMOGLOBIN 30.4 PG (27.0-31.0); MEAN CORPUSCULAR HGB CONC 33.4 g/dL (33.0-36.5); MEAN CORPUSCULAR VOLUME 91.1 FL (78-98); MEAN PLATELET VOLUME 10.8 FL (7.4-10.4); MONOCYTES # (AUTO) 0.9 X10'3 (0-0.9); MONOCYTES % (AUTO) 7.5 % (2-12); NEUTROPHILS # (AUTO) 9.4 X10'3 (1.8-7.7); NEUTROPHILS % (AUTO) 76.9 % (42-75); PLATELET COUNT 115 X10'3 (140-440); RED BLOOD COUNT 3.93 X10'6 (4.70-6.10); RED CELL DISTRIBUTION WIDTH 13.2 % (11.5-14.5); WHITE BLOOD COUNT 12.2 X10'3 (4.5-11.0)
[2019-04-16] MEDS: K and/or MAG REPLACEMENT MC SCH (08:00)
[2019-04-16 09:01] LABS: GIANT PLATELET FEW; LARGE PLATELETS FEW; PLATELET ESTIMATE DECREASED
[2019-04-16] MEDS: docusate sod 100mg capsule PO SCH ×2 (11:48→19:13)
--- NOTE | 2019-04-16 13:52 | NUR ---
Initial: Patient has good appetite, eating 75-100% of no concentrated sweets diet. LBM five days ago 04/11, patient is receiving colace BID and slow mag. 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 Recommend: 1. continue no concentrated sweets 2. provide written and verbal post cardiac surgery education handout with verbal review 3. continue bowel care 4. weight per rx Addendum: 04/16/19 at [address] Amended: Links added.
--- NOTE | 2019-04-16 14:27 | NUR ---
Alert and oriented to person place time an situation. Vital Signs are stable. Visitors at bedside. Sternal chest incision is approximated and open to air. Right leg internal popliteal surgical wound is approximated and open to air. Eating well. Tolerate activity up in chair and ambulation.
--- NOTE | 2019-04-16 17:57 | NUR ---
[place] documentation: I have reviewed and agree with all interventions, assessments performed and documented by Marilyn SQUIRES. [place] Medication Administration: For this medication-pass time frame, all medication were reviewed, dispensed, administered and documented per hospital policy by Marilyn SQUIRES.
[2019-04-16] MEDS: magnesium hydroxide 30ml (MOM) UD suspension PO PRN (18:18)
--- NOTE | 2019-04-16 18:26 | NUR ---
Problems reprioritized. Patient report given, questions answered & plan of care reviewed with Janett SQUIRES.
[2019-04-16] MEDS ORDERED: metoprolol tartrate 12.5mg (1/2 tablet) PO ONE (19:30)
[2019-04-16] MEDS: losartan 50mg tablet PO SCH (19:53)
[2019-04-17 02:00] VITALS: BP 119/62
[2019-04-17 04:46] LABS: BASOPHILS # (AUTO) 0.1 X10'3 (0-0.2); BASOPHILS % (AUTO) 0.8 % (0-1); EOSINOPHILS # (AUTO) 0.2 X10'3 (0-0.9); EOSINOPHILS % (AUTO) 1.4 % (0-6); HEMATOCRIT 36.1 % (42.0-52.0); HEMOGLOBIN 12.4 g/dl (14.0-17.9); LYMPHOCYTES # (AUTO) 2.3 X10'3 (1.1-4.8); LYMPHOCYTES % (AUTO) 19.7 % (21-51); MEAN CORPUSCULAR HGB CONC 34.3 g/dL (33.0-36.5); MEAN CORPUSCULAR VOLUME 90.2 FL (78-98); MEAN PLATELET VOLUME 10.3 FL (7.4-10.4); MONOCYTES # (AUTO) 1.2 X10'3 (0-0.9); MONOCYTES % (AUTO) 10.4 % (2-12); NEUTROPHILS # (AUTO) 7.8 X10'3 (1.8-7.7); NEUTROPHILS % (AUTO) 67.7 % (42-75); PLATELET COUNT 139 X10'3 (140-440); RED CELL DISTRIBUTION WIDTH 13.2 % (11.5-14.5); WHITE BLOOD COUNT 11.6 X10'3 (4.5-11.0)
[2019-04-17 04:57] LABS: ALBUMIN 2.7 G/DL (3.4-5.0); ANION GAP 8 (8-16); BLOOD UREA NITROGEN 17 MG/DL (7-18); BUN/CREATININE RATIO 19.3 (5.4-32.0); CHLORIDE 106 MMOL/L (99-107); CREATININE 0.88 MG/DL (0.60-1.10); GLUCOSE 106 MG/DL (70-104); MAGNESIUM 1.8 MG/DL (1.5-2.4); POTASSIUM 4.2 MMOL/L (3.5-5.1); SODIUM 140 MMOL/L (135-145); TOTAL CARBON DIOXIDE 26.5 MMOL/L (24-32); eGFR 83 ML/MIN
[2019-04-17 06:00] VITALS: BP 120/62
--- NOTE | 2019-04-17 06:51 | NUR ---
Patient in room MED 316. I have received report from gia and had the opportunity to ask questions and assume patient care.
[2019-04-17] MEDS: amiodarone/D5 360MG/200ML BAG 200 ML IV SCH ×2 (06:55→12:59)
[2019-04-17] MEDS ORDERED: amiodarone 150mg/dext, iso-os 100 ML IV ONE (06:55)
[2019-04-17] MEDS: metoprolol tartrate 25mg tablet PO SCH ×2 (07:12→19:47)
[2019-04-17] MEDS: lactobacillus rhamnosus 10,000 MMU CELLS/CAPSULE PO SCH ×2 (07:12→19:46)
[2019-04-17] MEDS: potassium Cl 20 mEq SR tablet PO SCH ×2 (07:13→19:46)
[2019-04-17] MEDS: atorvastatin 10mg tablet PO SCH (07:13)
[2019-04-17] MEDS: magnesium hydroxide 30ml (MOM) UD suspension PO PRN (07:14)
[2019-04-17] MEDS: docusate sod 100mg capsule PO SCH ×2 (07:14→19:21)
[2019-04-17] MEDS: pantoprazole 40mg Tablet.DR PO SCH (07:14)
[2019-04-17] MEDS: aspirin 81mg tablet.DR PO SCH (07:14)
[2019-04-17] MEDS: losartan 50mg tablet PO SCH (07:15)
[2019-04-17] MEDS: magnesium Cl slow-release 64mg tablet PO SCH ×2 (07:17→19:47)
[2019-04-17] MEDS: K and/or MAG REPLACEMENT MC SCH (07:17)
[2019-04-17] MEDS ORDERED: magnesium citrate 296ml oral solution PO ONE (09:00)
[2019-04-17 11:00] VITALS: BP 121/66
[2019-04-17 15:00] VITALS: BP 114/64
--- NOTE | 2019-04-17 15:20 | NUR ---
Education: visited patient at bedside and provided written post cardiac surgery diet education handout with verbal review. Patient reports a good appetite, eating well, and enjoying protein foods. No questions or concerns at this time. Reports good BM today. Will continue to follow. Addendum: 04/17/19 at [address] Amended: Links added.
[2019-04-17 18:00] VITALS: BP 136/79
--- NOTE | 2019-04-17 18:30 | NUR ---
Problems reprioritized. Patient report given, questions answered & plan of care reviewed with SHAW GARCIA.
[2019-04-17 22:00] VITALS: BP 148/81
[2019-04-18 02:00] VITALS: BP 113/72
--- NOTE | 2019-04-18 05:02 | NUR ---
Pt went into paroximal a-fib after walking back to bed from bathroom at 4:47 am. Heart rate 130s-140s, SBP 140, pt not feeling symptomatic, just feels "heart fluttering". Instructed patient to bear down, no change in heart rate. Paged Oren Marques to advise and possibly new orders, left message on voicemail. Pt auto-converted back to NSR in 80's at 5:01 am.
[2019-04-18 05:50] LABS: BASOPHILS # (AUTO) 0.1 X10'3 (0-0.2); BASOPHILS % (AUTO) 0.8 % (0-1); EOSINOPHILS # (AUTO) 0.3 X10'3 (0-0.9); EOSINOPHILS % (AUTO) 2.3 % (0-6); HEMATOCRIT 37.9 % (42.0-52.0); HEMOGLOBIN 12.8 g/dl (14.0-17.9); LYMPHOCYTES # (AUTO) 2.4 X10'3 (1.1-4.8); LYMPHOCYTES % (AUTO) 21.8 % (21-51); MEAN CORPUSCULAR HEMOGLOBIN 30.6 PG (27.0-31.0); MEAN CORPUSCULAR HGB CONC 33.7 g/dL (33.0-36.5); MEAN CORPUSCULAR VOLUME 90.6 FL (78-98); MEAN PLATELET VOLUME 10.4 FL (7.4-10.4); MONOCYTES # (AUTO) 0.9 X10'3 (0-0.9); MONOCYTES % (AUTO) 8.2 % (2-12); NEUTROPHILS # (AUTO) 7.5 X10'3 (1.8-7.7); NEUTROPHILS % (AUTO) 66.9 % (42-75); PLATELET COUNT 170 X10'3 (140-440); RED BLOOD COUNT 4.19 X10'6 (4.70-6.10); RED CELL DISTRIBUTION WIDTH 13.2 % (11.5-14.5); WHITE BLOOD COUNT 11.1 X10'3 (4.5-11.0)
[2019-04-18 06:00] VITALS: BP 140/86
[2019-04-18 06:01] LABS: ALBUMIN 2.7 G/DL (3.4-5.0); ANION GAP 9 (8-16); BLOOD UREA NITROGEN 19 MG/DL (7-18); BUN/CREATININE RATIO 21.1 (5.4-32.0); CALCIUM 8.7 MG/DL (8.5-10.1); CHLORIDE 106 MMOL/L (99-107); GLUCOSE 103 MG/DL (70-104); MAGNESIUM 1.9 MG/DL (1.5-2.4); POTASSIUM 4.3 MMOL/L (3.5-5.1); SODIUM 139 MMOL/L (135-145); TOTAL CARBON DIOXIDE 23.6 MMOL/L (24-32); eGFR 81 ML/MIN
--- NOTE | 2019-04-18 06:51 | NUR ---
Patient in room MED 316. I have received report from Ayanna SQUIRES and had the opportunity to ask questions and assume patient care.
[2019-04-18] MEDS ORDERED: COL100C PO (07:28)
[2019-04-18] MEDS ORDERED: ASPI-1071 PO (07:28)
[2019-04-18] MEDS ORDERED: ATOR10TA PO (07:28)
[2019-04-18] MEDS ORDERED: LOSA50TA64 PO (07:28)
[2019-04-18] MEDS ORDERED: AMIO200T40 PO (07:28)
[2019-04-18] MEDS ORDERED: METO25TA6 PO (07:28)
[2019-04-18] MEDS ORDERED: amiodarone 150mg/dext, iso-os 100 ML IV ONE (07:30)
[2019-04-18] MEDS: losartan 50mg tablet PO SCH (07:52)
[2019-04-18] MEDS: docusate sod 100mg capsule PO SCH (07:52)
[2019-04-18] MEDS: pantoprazole 40mg Tablet.DR PO SCH (07:53)
[2019-04-18] MEDS: lactobacillus rhamnosus 10,000 MMU CELLS/CAPSULE PO SCH (07:53)
[2019-04-18] MEDS: aspirin 81mg tablet.DR PO SCH (07:53)
[2019-04-18] MEDS: atorvastatin 10mg tablet PO SCH (07:53)
[2019-04-18] MEDS: metoprolol tartrate 25mg tablet PO SCH (07:54)
[2019-04-18] MEDS: magnesium Cl slow-release 64mg tablet PO SCH (07:54)
[2019-04-18] MEDS: amiodarone 200mg tablet PO SCH ×2 (07:56→13:42)
[2019-04-18] MEDS: K and/or MAG REPLACEMENT MC SCH (07:57)
[2019-04-18] MEDS ORDERED: amiodarone 200mg tablet PO SCH ×2 (08:00)
[2019-04-18] MEDS: potassium Cl 20 mEq SR tablet PO SCH (08:00)
[2019-04-18 11:00] VITALS: BP 101/58
--- NOTE | 2019-04-18 15:30 | NUR ---
Patient was discharged in stable condition by Dr Faustin. All discharge paperwork and instructions were reviewed with the patient and his family, they had no further questions at this time. His IV was removed with the catheter tip intact, there was minimal bleeding, and clean gauze and tape were applied. His new prescriptions were delivered via [facility]. Patient was escorted out of hospital via wheelchair where he got into his family's private vehicle.
== END 2019-04-18 15:27 | disposition home health service (06) | DRG 233 ==
LOC: ER 16:58 → MED 3N 20:17 → CMPBEDREQ 20:28 → PACU 04-13 09:00 → ICU 2S 04-13 11:09 → MED 3N 04-16 14:45
PROVIDERS: ADMIT Internal Medicine; ATTEND Thoracic Surgery (Cardiothoracic Vascular Surgery)
PROC: 06BP4ZZ Excision of Right Saphenous Vein, Percutaneous Endoscopic Approach (ICD-10-PCS; 2019-04-13)
PROC: 02100Z9 Bypass Coronary Artery, One Artery from Left Internal Mammary, Open Approach (ICD-10-PCS; 2019-04-13)
PROC: 021209W Bypass Coronary Artery, Three Arteries from Aorta with Autologous Venous Tissue, Open Approach (ICD-10-PCS; principal; 2019-04-13 09:10)
PROC: 4A023N7 Measurement of Cardiac Sampling and Pressure, Left Heart, Percutaneous Approach (ICD-10-PCS; 2019-04-14)
PROC: B2181ZZ Fluoroscopy of Left Internal Mammary Bypass Graft using Low Osmolar Contrast (ICD-10-PCS; 2019-04-14)
PROC: B2111ZZ Fluoroscopy of Multiple Coronary Arteries using Low Osmolar Contrast (ICD-10-PCS; 2019-04-14)
PROC: B2151ZZ Fluoroscopy of Left Heart using Low Osmolar Contrast (ICD-10-PCS; 2019-04-14)
DX: I21.4 Non-ST elevation (NSTEMI) myocardial infarction (principal); I50.31 Acute diastolic (congestive) heart failure; I25.110 Atherosclerotic heart disease of native coronary artery with unstable angina pectoris; I48.0 Paroxysmal atrial fibrillation; I70.0 Atherosclerosis of aorta; I11.0 Hypertensive heart disease with heart failure; I25.2 Old myocardial infarction
CPT/HCPCS: 0232T; 93312; 93325; 93458; 96360; 99285; 36415; 36600; 71045; 71046; 80048; 80053; 80061; 82330; 82435; 82803; 82947; 82948; 83036; 83735; 83880; 84100; 84132; 84295; 84484; 85018; 85025; 85027; 85347; 85384; 85610; 85730; 86885; 86900; 86901; 86920; 87070; 93005; 93880; 93922; 93930; 93970; 94002; 94010; 94668; 94760; 97110; 97116; 97161; 97530; 99152; 99153; A4620; A6255; A6257; A6258; A6402; A6449; A7000; A7048; C1751; C1760; C1769; C9113; G0378; J0131; J0282; J0690; J1644; J1650; J1815; J1940; J2001; J2060; J2150; J2250; J2270; J2370; J2440; J2704; J2795; J2930; J3010; J3370; J3475; J3480; J3490; J7030; J7120; P9045; P9047; Q9967